=== PATIENT | male | born 1980 | race American Indian/Alaskan Native ===

== ENCOUNTER 2019-08-15 18:09 | Emergency (ER) | payer MEDICARE ==
[2019-08-15 18:29] VITALS: BP 138/91
[2019-08-15 18:55] LABS: Bacteria,Urine 1+ /HPF (Negative); Bilirubin,Urine NEG (Negative); Blood,Urine SM (Negative); Color,Urine Yellow (Yellow); Mucus,Urine FEW /HPF; Protein,Urine <15 mg/dL mg/dL (Negative); Urobilinogen,Urine < 2.0 mg/dL (<2.0)
[2019-08-15 19:36] LABS: Basophils % (Auto) 0.4 % (0.0-1.8); Eosinophils % (Auto) 0.6 % (0.0-4.3); Hematocrit 47.1 % (35.5-45.6); Lymphocytes # (Auto) 1.7 K/mm3 (1.2-5.4); Lymphocytes % (Auto) 32.3 % (13.4-35.0); Mean Corpuscular HGB Conc 34 % (32-34); Mean Corpuscular Volume 86 fl (84-94); Monocytes # (Auto) 0.8 K/mm3 (0.0-0.8); Monocytes % (Auto) 15.1 % (0.0-7.3); Platelet Count 229 K/mm3 (140-440); Red Blood Count 5.47 M/mm3 (3.65-5.03); Red Cell Distribution Width 14.1 % (13.2-15.2)
[2019-08-15 19:39] LABS: Alanine Aminotransferase 13 units/L (7-56); Albumin 4.4 g/dL (3.9-5); BUN/Creatinine Ratio 12; Blood Urea Nitrogen 13 mg/dL (9-20); Calcium 9.5 mg/dL (8.4-10.2); Hemolysis Index 10
[2019-08-15] MEDS ORDERED: cefTRIAXone/NS 1 GM/50 ML 1 GM/50 ML BAG IV ONE (19:59)
[2019-08-15] MEDS ORDERED: ACETAMINOPHEN 500 MG TAB PO ONE (19:59)
[2019-08-15] MEDS ORDERED: AZITHROMYCIN 250 MG TAB PO ONE (19:59)
[2019-08-15] MEDS ORDERED: SODIUM CHLORIDE 0.9% 1000 ML 1,000 ML IV ONE (20:00)
[2019-08-15] MEDS ORDERED: ONDANSETRON 4 MG/2 ML INJ IV ONE (20:27)
--- NOTE | 2019-08-15 20:38 | XRay Report ---
CHEST 2 VIEWS, 08/15/2019 8:24 PM INDICATION: Cough COMPARISON: None FINDINGS: Support devices: None Heart: The heart is normal in size. Lungs/pleura: The lungs are well expanded and appear clear of focal airspace disease or significant p leural effusion. Additional findings: No significant acute abnormality. IMPRESSION: 1. No evidence of acute cardiopulmonary process. Signer Name: Patt Vickers MD Signed: 08/15/2019 8:33 PM Workstation Name: [id number]
--- NOTE | 2019-08-15 21:36 | Emergency Department Report ---
ED General Adult HPI - General Chief complaint: Nausea/Vomiting/Diarrhea Stated complaint: CHILLS,FEVER,NIGHT SWEATS Time Seen by Provider: 08/15/19 21:05 Source: patient Mode of arrival: Ambulatory Limitations: No Limitations - History of Present Illness Initial comments: Patient is a 38-year-old -[place] male with a history of HIV and who has sex with men with no protection presents to the ED with complaint of acute persistent diffuse body aches and pains, subjective fever and chills, diaphoresis, mild dry cough and generalized weakness with dysuria and urinary frequency and urgency for the last 4 days despite taking cagh-bya-stizgmw med ications. Patient denies testicular pain, abdominal pain, nausea, vomiting, diarrhea, dizziness, syncope, chest pain, shortness of breath, sore throat, headache or hematuria. MD Complaint: Generalized weakness, subjective fever and chills, dysuria, body aches -: Sudden, days(s) (4) Location: back, genitals Radiation: non-radiation Severity scale (0 -10): 4 Quality: aching, sharp Consistency: constant Improves with: none Worsens with: none Associated Symptoms: denies other symptoms, cough, fever/chills, headaches, loss of appetite, malaise, weakness. denies: confusion, chest pain, diaphoresis, nausea/vomiting, rash, seizure, shortness of breath, syncope Treatments Prior to Arrival: none - Related Data Previous Rx's Medication Instructions Recorded Last Taken Type Fluconazole [Diflucan TAB] 150 mg PO ONCE #2 tablet 08/15/19 Unknown Rx Ibuprofen [Motrin] 600 mg PO Q8H PRN #20 tablet 08/15/19 Unknown Rx Ondansetron [Zofran Odt] 4 mg PO Q6HR PRN #15 tab.rapdis 08/15/19 Unknown Rx Phenazopyridine [Pyridium] 100 mg PO Q8H PRN #21 tab 08/15/19 Unknown Rx cephALEXin [Keflex] 500 mg PO Q6HR #40 capsule 08/15/19 Unknown Rx Allergies Allergy/AdvReac Type Severity Reaction Status Date / Time cobicistat [From Prezcobix] Allergy Unknown Verified 08/15/19 18:30 darunavir [From Prezcobix] Allergy Unknown Verified 08/15/19 18:30 latex Allergy Unknown Verified 08/15/19 18:30 Sulfa (Sulfonamide Allergy Unknown Verified 08/15/19 18:30 Antibiotics) ED Review of Systems ROS: Stated complaint: CHILLS,FEVER,NIGHT SWEATS Other details as noted in HPI Constitutional: chills, fever, malaise, weakness Eyes: denies: eye pain, eye discharge, vision change ENT: congestion. denies: ear pain, throat pain Respiratory: cough. denies: shortness of breath, SOB with exertion, SOB at rest, wheezing Cardiovascular: denies: chest pain, palpitations Endocrine: no symptoms reported Gastrointestinal: denies: abdominal pain, nausea, vomiting, diarrhea, constipation, hematochezia Genitourinary: urgency, dysuria, frequency. denies: hematuria, discharge, testicular pain Musculoskeletal: back pain, arthralgia, myalgia. denies: joint swelling Skin: denies: rash, lesions Neurological: headache. denies: weakness, paresthesias Psychiatric: denies: anxiety, depression Hematological/Lymphatic: denies: easy bleeding, easy bruising ED Past Medical Hx - Past Medical History Previous Medical History?: Yes Hx HIV: Yes (on anti-virals non detectable) Additional medical history: crohns - Surgical History Past Surgical History?: No - Social History Smoking Status: Current Every Day Smoker Substance Use Type: Marijuana - Medications Home Medications: Home Medications Medication Instructions Recorded Confirmed Last Taken Type Fluconazole [Diflucan TAB] 150 mg PO ONCE #2 tablet 08/15/19 Unknown Rx Ibuprofen [Motrin] 600 mg PO Q8H PRN #20 tablet 08/15/19 Unknown Rx Ondansetron [Zofran Odt] 4 mg PO Q6HR PRN #15 tab.rapdis 08/15/19 Unknown Rx Phenazopyridine [Pyridium] 100 mg PO Q8H PRN #21 tab 08/15/19 Unknown Rx cephALEXin [Keflex] 500 mg PO Q6HR #40 capsule 08/15/19 Unknown Rx ED Physical Exam - General Limitations: No Limitations General appearance: alert, in no apparent distress - Head Head exam: Present: atraumatic, normocephalic, normal inspection - Eye Eye exam: Present: normal appearance, PERRL, EOMI Pupils: Present: normal accommodation - ENT ENT exam: Present: normal exam, normal orophraynx, mucous membranes moist, TM's normal bilaterally, normal external ear exam - Neck Neck exam: Present: normal inspection, full ROM - Respiratory Respiratory exam: Present: normal lung sounds bilaterally. Absent: respiratory distress, wheezes, rales, rhonchi, chest wall tenderness, accessory muscle use, decreased breath sounds, prolonged expiratory - Cardiovascular Cardiovascular Exam: Present: regular rate, normal rhythm, normal heart sounds. Absent: systolic murmur, diastolic murmur, rubs, gallop - GI/Abdominal GI/Abdominal exam: Present: soft, normal bowel sounds. Absent: tenderness, guarding, rebound, hyperactive bowel sounds, hypoactive bowel sounds - exam: Present: normal inspection External exam: Present: normal external exam - Extremities Exam Extremities exam: Present: normal inspection, full ROM, normal capillary refill - Back Exam Back exam: Present: normal inspection, full ROM. Absent: tenderness, CVA tenderness (R), muscle spasm, paraspinal tenderness, vertebral tenderness - Neurological Exam Neurological exam: Present: alert, oriented X3, CN II-XII intact, normal gait, reflexes normal - Psychiatric Psychiatric exam: Present: normal affect, normal mood - Skin Skin exam: Present: warm, dry, intact, normal color. Absent: rash ED Course Vital Signs 08/15/19 18:23 Temperature 98.6 F Pulse Rate 89 Respiratory 18 Rate Blood Pressure 138/91 O2 Sat by Pulse 98 Oximetry ED Medical Decision Making - Lab Data Result diagrams: 08/15/19 19:05 08/15/19 19:05 - Radiology Data Radiology results: report reviewed, image reviewed Findings [facility] [address] [place] [address] XRay Report Signed Patient: SALOMÓN BESS MR# : [id number] : 1980 Acct:[id number] Age/Sex: 38 / M ADM Date: 08/15/19 Loc: ED Attending Dr: Ordering Physician: LAM MACEDO Date of Service: 08/15/19 Procedure(s): XR chest routine 2V Accession Number(s): [id number] cc: LAM MACEDO Fluoro Time In Minutes: CHEST 2 VIEWS, 08/15/2019 8:24 PM INDICATION: Cough COMPARISON: None FINDINGS: Support devices: None Heart: The heart is normal in size. Lungs/pleura: The lungs are well expanded and appear clear of focal airspace disease or significant pleural effusion. Additional findings: No significant acute abnormality. IMPRESSION: 1. No evidence of acute cardiopulmonary process. Signer Name: Patt Vickers MD Signed: 08/15/2019 8:33 PM Workstation Name: [id number] Transcribed By: CARMELO Dictated By: Patt Vickers MD Electronically Authenticated By: Patt Vickers MD Signed Date/Time: 08/15/192032 DD/ 32 TD/TT - Medical Decision Making This is a 38-year-old -[place] male with a history of HIV and who has sex with men with no protection presents to the ED with complaint of acute persistent diffuse body aches and pains, subjective fever and chills, diaphoresis, mild dry cough and generalized weakness with dysuria and urinary frequency and urgency for the last 4 days despite taking sdxs-hwg-thofwan medications. In the ED, patient is alert and oriented x3 and is not in distress. Lab test results were reviewed and are all nonactionable except for urinalysis that showed significant urinary tract infection which for the patient of his age is likely sexually transmitted disease, gonorrhea and chlamydia. Chest x-ray shows no acute cardiopulmonary abnormalities or pneumonitis. Patient was treated in the ED empirically for chlamydia and gonorrhea with Rocephin and azithromycin. Patient also received some pain medications and was discharged home on antibiotics and pain medications and advised to follow-up with his primary care physician in 7 to 10 days for reevaluation. Patient was advised to consider following up with the [facility] department for further STD testing. Patient was advised to return to the ED immediately if symptoms get worse. - Differential Diagnosis STD; Pneumonia; UTI; URI Critical care attestation.: If time is entered above; I have spent that time in minutes in the direct care of this critically ill patient, excluding procedure time. ED Disposition Clinical Impression: Flu-like symptoms, Acute urinary tract infection, Minal infection of genital region, STD (sexually transmitted disease) Disposition: DC-01 TO HOME OR SELFCARE Is pt being admited?: No Does the pt Need Aspirin: No Condition: Stable Instructions: Sexually Transmitted Diseases (ED), Urinary Tract Infection in Men (ED), Dysuria (ED) Additional Instructions: Take medications with food, drink plenty of fluids and follow-up with your primary care physician in 7 to 10 days for reevaluation. Consider following up with a [facility] for further evaluation. Return to the ED immediately if symptoms get worse. Prescriptions: Fluconazole [Diflucan TAB] 150 mg PO ONCE #2 tablet cephALEXin [Keflex] 500 mg PO Q6HR #40 capsule Ibuprofen [Motrin] 600 mg PO Q8H PRN #20 tablet PRN Reason: Pain Phenazopyridine [Pyridium] 100 mg PO Q8H PRN #21 tab PRN Reason: dysuria Ondansetron [Zofran Odt] 4 mg PO Q6HR PRN #15 tab.rapdis PRN Reason: Nausea Referrals: [facility] [Outside] - 3-5 Days [facility] [Provider Group] - 7-10 days Time of Disposition: 21:51 Print Language: GREENLANDIC
== END 2019-08-15 22:05 | disposition home or self-care (01) ==
LOC: ED 18:09
DX: J06.9 Acute upper respiratory infection, unspecified (principal); A64 Unspecified sexually transmitted disease; B37.49 Other urogenital candidiasis; R53.1 Weakness; R30.0 Dysuria; R35.0 Frequency of micturition; R50.9 Fever, unspecified; R61 Generalized hyperhidrosis; R05 Cough; F17.200 Nicotine dependence, unspecified, uncomplicated; F12.90 Cannabis use, unspecified, uncomplicated; Z88.8 Allergy status to other drugs, medicaments and biological substances; Z91.040 Latex allergy status; Z88.2 Allergy status to sulfonamides; Z79.899 Other long term (current) drug therapy; Z21 Asymptomatic human immunodeficiency virus [HIV] infection status
CPT/HCPCS: 36415; 71046; 80053; 81001; 83690; 85025; 87086; 96365; 96375; 99284; J0696; J2405; J7030

== ENCOUNTER 2020-02-19 11:22 | Emergency (ER) | payer MEDICARE ==
[2020-02-19 11:45] VITALS: BP 117/77
[2020-02-19 12:59] LABS: Alanine Aminotransferase 9 units/L (7-56); Albumin 4.4 g/dL (3.9-5); BUN/Creatinine Ratio 15; Blood Urea Nitrogen 15 mg/dL (9-20); Calcium 9.3 mg/dL (8.4-10.2); Hemolysis Index 12
--- NOTE | 2020-02-19 13:32 | Emergency Department Report ---
ED General Adult HPI - General Chief complaint: Abdominal Pain Stated complaint: BLOOD IN URINE,CHILLS Time Seen by Provider: 02/19/20 13:20 Source: patient Mode of arrival: Ambulatory Limitations: No Limitations - History of Present Illness Initial comments: Patient is a 39 years old male with history of HIV and Crohn's disease. Patient presented to the ER complaining of slight rectal bleeding after he have anal intercourse last night. Patient stated that he noticed that when he wiped there is a bright red blood. Patient took a picture and showed to me. He stated that there is no bleeding since then. Patient denied any hematemesis, melena, h emoptysis or hematuria. Patient is not taking any blood thinner medicine according to his report. No fever or chills. - Related Data Previous Rx's Medication Instructions Recorded Last Taken Type Fluconazole (Nf) [Diflucan TAB] 150 mg PO ONCE #2 tablet 08/15/19 Unknown Rx Ibuprofen [Motrin] 600 mg PO Q8H PRN #20 tablet 08/15/19 Unknown Rx Ondansetron [Zofran Odt] 4 mg PO Q6HR PRN #15 tab.rapdis 08/15/19 Unknown Rx Phenazopyridine [Pyridium] 100 mg PO Q8H PRN #21 tab 08/15/19 Unknown Rx cephALEXin [Keflex] 500 mg PO Q6HR #40 capsule 08/15/19 Unknown Rx Allergies Allergy/AdvReac Type Severity Reaction Status Date / Time cobicistat [From Prezcobix] Allergy Unknown Verified 08/15/19 18:30 darunavir [From Prezcobix] Allergy Unknown Verified 08/15/19 18:30 latex Allergy Unknown Verified 08/15/19 18:30 Sulfa (Sulfonamide Allergy Unknown Verified 08/15/19 18:30 Antibiotics) ED Review of Systems ROS: Stated complaint: BLOOD IN URINE,CHILLS Other details as noted in HPI Comment: All other systems reviewed and negative Constitutional: denies: chills, fever Respiratory: denies: shortness of breath, SOB with exertion Cardiovascular: denies: chest pain Gastrointestinal: abdominal pain, hematochezia. denies: nausea, vomiting, diarrhea, constipation, hematemesis, melena Musculoskeletal: denies: back pain ED Past Medical Hx - Past Medical History Previous Medical History?: Yes Hx HIV: Yes (on anti-virals non detectable) Additional medical history: crohns - Social History Smoking Status: Current Every Day Smoker Substance Use Type: Alcohol - Medications Home Medications: Home Medications Medication Instructions Recorded Confirmed Last Taken Type Fluconazole (Nf) [Diflucan TAB] 150 mg PO ONCE #2 tablet 08/15/19 Unknown Rx Ibuprofen [Motrin] 600 mg PO Q8H PRN #20 tablet 08/15/19 Unknown Rx Ondansetron [Zofran Odt] 4 mg PO Q6HR PRN #15 tab.rapdis 08/15/19 Unknown Rx Phenazopyridine [Pyridium] 100 mg PO Q8H PRN #21 tab 08/15/19 Unknown Rx cephALEXin [Keflex] 500 mg PO Q6HR #40 capsule 08/15/19 Unknown Rx ED Physical Exam - General Limitations: No Limitations General appearance: alert, in no apparent distress - Head Head exam: Present: atraumatic, normocephalic, normal inspection - Eye Eye exam: Present: normal appearance - ENT ENT exam: Present: normal exam, normal orophraynx, mucous membranes moist - Neck Neck exam: Present: normal inspection, full ROM. Absent: tenderness, menin gismus - Respiratory Respiratory exam: Present: normal lung sounds bilaterally - Cardiovascular Cardiovascular Exam: Present: regular rate, normal rhythm, normal heart sounds - GI/Abdominal GI/Abdominal exam: Present: soft, normal bowel sounds. Absent: distended, tenderness, guarding, rebound, rigid, organomegaly, mass, bruit, pulsatile mass, hernia - Rectal Rectal exam: Present: normal inspection, normal rectal tone, heme (-) stool. Absent: black stool, bloody stool, fecal impaction, hemorrhoids, mass, tenderness - exam: Present: normal inspection. Absent: testicular tenderness, urethral discharge, scrotal swelling, vertical testicular lie External exam: Present: normal external exam. Absent: erythema, swelling, lesions, lacerations, ecchymosis, bleeding - Extremities Exam Extremities exam: Present: normal inspection, full ROM, normal capillary refill - Back Exam Back exam: Absent: CVA tenderness (R), CVA tenderness (L) - Neurological Exam Neurological exam: Present: alert, oriented X3, CN II-XII intact, normal gait - Psychiatric Psychiatric exam: Present: normal mood - Skin Skin exam: Present: warm, intact, normal color ED Course Vital Signs 10/17/20 11:43 Temperature 98.3 F Pulse Rate 71 Respiratory 16 Rate Blood Pressure 117/77 O2 Sat by Pulse 96 Oximetry ED Medical Decision Making - Lab Data Result diagrams: 02/19/20 12:05 02/19/20 12:05 - Medical Decision Making Patient is a 39 years old male with history of HIV and Crohn's disease. Patient presented to the ER complaining of slight rectal bleeding after he have anal intercourse last night. Patient stated that he noticed that when he wiped there is a bright red blood. Patient took a picture and showed to me. He stated that there is no bleeding since then. Patient denied any hematemesis, melena, hemoptysis or hematuria. Patient is not taking any blood thinner medicine according to his report. No fever or chills. Patient remained asymptomatic in the emergency room. Labs reviewed and is unremarkable. I believe the rectal bleeding is most likely from his anal intercourse. Patient advised to follow-up with his primary doctor in the next 2 to 3 days and to return to the ER if he develop any symptoms. Critical care attestation.: If time is entered above; I have spent that time in minutes in the direct care of this critically ill patient, excluding procedure time. ED Disposition Clinical Impression: Rectal bleeding Disposition: DC-01 TO HOME OR SELFCARE Is pt being admited?: No Condition: Stable Instructions: Rectal Bleeding (ED) Referrals: DIMAS ALAN MD [Primary Care Provider] - 3-5 Days
[2020-02-19 13:44] LABS: Basophils % (Auto) 0.8 % (0.0-1.8); Eosinophils # (Auto) 0.1 K/mm3 (0.0-0.4); Eosinophils % (Auto) 1.8 % (0.0-4.3); Hematocrit 41.9 % (35.5-45.6); Hemoglobin 13.9 gm/dl (11.8-15.2); Lymphocytes # (Auto) 1.9 K/mm3 (1.2-5.4); Lymphocytes % (Auto) 40.4 % (13.4-35.0); Mean Corpuscular HGB Conc 33 % (32-34); Mean Corpuscular Volume 89 fl (84-94); Monocytes # (Auto) 0.5 K/mm3 (0.0-0.8); Monocytes % (Auto) 9.9 % (0.0-7.3); Platelet Count 233 K/mm3 (140-440); Red Cell Distribution Width 14.6 % (13.2-15.2)
[2020-02-19 13:51] LABS: Bilirubin,Urine NEG (Negative); Blood,Urine NEG (Negative); Color,Urine Yellow (Yellow); Mucus,Urine FEW /HPF; Protein,Urine <15 mg/dL mg/dL (Negative); RBC,Urine < 1.0 /HPF (0.0-6.0); WBC,Urine < 1.0 /HPF (0.0-6.0)
== END 2020-02-19 14:53 | disposition home or self-care (01) ==
LOC: ED 11:22
DX: K62.5 Hemorrhage of anus and rectum (principal); F17.200 Nicotine dependence, unspecified, uncomplicated; Z21 Asymptomatic human immunodeficiency virus [HIV] infection status; Z79.1 Long term (current) use of non-steroidal anti-inflammatories (NSAID); Z79.899 Other long term (current) drug therapy; Z88.2 Allergy status to sulfonamides; Z91.040 Latex allergy status; Z88.8 Allergy status to other drugs, medicaments and biological substances
CPT/HCPCS: 36415; 80053; 81001; 85025; 99283